=== PATIENT | female | born 1985 | race Caucasian/White ===

== ENCOUNTER 2020-08-12 06:04 | Observation (INO) | payer OTHER ==
[2020-08-12] VITALS (10 sets, daily range): BP systolic 90–129; BP diastolic 54–83
[~2020-08-12] VITALS: Ht 167.6 cm; Wt 125.0 kg
[~2020-08-12 06:04] MED LIST: CALC-58 PO; CETI10TA74 PO; CHOL5000 PO; CYAN25008 PO; HYDROmorphone 2 MG/ML VIAL IVP PRN; MORPHINE SULFATE 2 MG/ML VIAL. IVP PRN; MULT-445 PO; PROCHLORPERAZINE 10 MG/2 ML VIAL. IVP PRN; fentaNYL PF VIAL 100 MCG/2 ML VIAL IVP PRN
[2020-08-12] MEDS: IV RINGERS,LACTATED 1000ML 1,000 ML IV SCH ×2 (06:53→11:01)
[2020-08-12 07:05] LABS: BASO % 0 % (0-3); EOS # 0.1 x10^3/uL (0.0-0.7); EOS % 1 % (0-3); HEMATOCRIT 36.5 % (36.0-47.0); LYMPH % 28 % (24-48); MEAN CORPUSCULAR HEMOGLOBIN 26 pg (25-35); MEAN CORPUSCULAR HGB CONC 33 g/dL (31-37); MEAN CORPUSCULAR VOLUME 79 fL (79-100); MONO # 0.5 x10^3/uL (0.0-1.1); MONO % 7 % (0-9); NEUT # 4.4 x10^3/uL (1.8-7.7); NEUT % 63 % (31-73); PLATELET COUNT 226 x10^3/uL (140-400); RED CELL DISTRIBUTION WIDTH 15.4 % (11.5-14.5)
[2020-08-12] MEDS ORDERED: LIDOCAINE 2% PF 5 ML VIAL. ONE (07:24)
[2020-08-12] MEDS ORDERED: fentaNYL PF VIAL 250 MCG/5 ML VIAL ONE (07:24)
[2020-08-12] MEDS ORDERED: MIDAZOLAM HCL/PF 2 MG/2 ML VIAL. ONE (07:24)
[2020-08-12] MEDS ORDERED: ROCURONIUM 50 MG/5 ML VIAL. ONE ×2 (07:24→08:40)
[2020-08-12] MEDS ORDERED: PROPOFOL 10 MG/ML (20ML) VIAL. IV ONE (07:24)
[2020-08-12] MEDS ORDERED: SURGICEL HEMOSTAT 4X8 EACH. ONE (07:29)
[2020-08-12] MEDS ORDERED: BUPIVACAINE-EPI 0.25% 30 ML VIAL KIT. ONE (07:29)
[2020-08-12] MEDS ORDERED: ESTROGENS, CONJ VAGINAL CREAM 30GM TUBE. ONE (07:29)
[2020-08-12] MEDS ORDERED: INDIGOTINDISULFONATE SODIUM 40 MG/5 ML AMPUL. ONE (07:30)
[2020-08-12] MEDS ORDERED: LIDOCAINE 1%/EPI 1:100,000 20 ML VIAL. ONE (07:30)
[2020-08-12] MEDS ORDERED: DEXAMETHASONE SOD PHOS 4 MG/ML VIAL ONE (08:03)
[2020-08-12] MEDS ORDERED: ONDANSETRON PF 4 MG/2 ML VIAL. ONE (08:03)
[2020-08-12] MEDS ORDERED: ceFAZolin SODIUM IV Push 1 GM VIAL. IVP ONE (08:12)
[2020-08-12] MEDS ORDERED: ALBUTEROL SULFATE 8GM INHALER. INH ONE (08:37)
[2020-08-12] MEDS ORDERED: GLYCOPYRROLATE 1 MG/5 ML VIAL. ONE (08:45)
[2020-08-12] MEDS ORDERED: NEOSTIGMINE METHYLSULFATE 5 MG/5 ML SYRINGE. ONE (09:16)
--- NOTE | 2020-08-12 09:38 | PDOC ---
BRIEF OPERATIVE NOTE Date: Aug 12, 2020 Pre-Op Diagnosis 1. Menorrhagia 2. Dysmenorrhea 3. ROV Cyst Post-Op Diagnosis Same Procedure Performed LAVH & RSO Surgeon Dr. Scales Rehab Consultant Sequins Stringer: Armin Anesthesia Type: General Blood Loss 200 ml Specimens Obtained cervix, uterus, fred. fallopian tubes and ROV Findings Enlarged uterus, ROV cyst 5 cm size, nml fallopian tubes fred. Complications none Operative Note see dictation MARII SCALES Jr, MD Aug 12, 2020 09:38
[2020-08-12] MEDS ORDERED: KETOROLAC 30 MG/ML VIAL. ONE (09:44)
[2020-08-12] MEDS ORDERED: 0.9 % SODIUM CHLORIDE 10 ML DISP.SYRIN. IV PRN (09:45)
[2020-08-12] MEDS ORDERED: ONDANSETRON PF 4 MG/2 ML VIAL. IV PRN (09:45)
[2020-08-12] MEDS ORDERED: SIMETHICONE 80 MG TAB.CHEW PO PRN (09:45)
[2020-08-12] MEDS ORDERED: ZOLPIDEM 5 MG TABLET. PO PRN (09:45)
[2020-08-12] MEDS ORDERED: diphenhydrAMINE 50 MG/ML VIAL IV PRN (09:45)
[2020-08-12] MEDS ORDERED: diphenhydrAMINE HCL 25 MG CAPSULE PO PRN (09:45)
[2020-08-12] MEDS ORDERED: CALCIUM CARBONATE 500 MG TAB.CHEW PO PRN (09:45)
[2020-08-12] MEDS ORDERED: DEXTROSE 50% 25 GM / 50ML DISP.SYRIN. IV PRN (09:45)
[2020-08-12] MEDS ORDERED: PROCHLORPERAZINE 10 MG/2 ML VIAL. IV PRN (09:45)
[2020-08-12] MEDS: fentaNYL PF VIAL 100 MCG/2 ML VIAL IVP PRN ×2 (10:10→10:18)
--- NOTE | 2020-08-12 10:18 | OP ---
DATE OF SURGERY: 08/12/2020 PREOPERATIVE DIAGNOSES: 1. Menorrhagia. 2. Dysmenorrhea. 3. Right ovarian cyst. POSTOPERATIVE DIAGNOSES: 1. Menorrhagia. 2. Dysmenorrhea. 3. Right ovarian cyst. PROCEDURE: LAVH and RSO. SURGEON: Miguel Scales MD HAND HOSE CUTTER: Armin. ANESTHESIA: GETA. ESTIMATED BLOOD LOSS: 200 mL COMPLICATIONS: None. FINDINGS: Enlarged uterus, right ovarian cyst of 5 cm size. Normal fallopian tubes bilaterally. SUMMARY: A 34-year-old with long history of heavy painful vaginal bleeding and a right ovarian cyst that enlarged. The patient was counseled on the risks, benefits and expectations for LAVH and RSO and voiced clear understanding to proceed. DESCRIPTION OF PROCEDURE: The patient was taken to the surgery suite and placed in dorsal lithotomy position. She was prepped with Betadine solution for vaginal prep and ChloraPrep for abdominal prep. After adequate anesthesia, bivalve speculum was placed vaginally. Anterior lip of cervix grasped with single tooth tenaculum. The [employer] uterine manipulator was then placed. The bivalve speculum was removed. Attention was now placed on abdomen. The 0.25% Marcaine with epinephrine was injected at the incision sites, which were right below the umbilicus and 2 incision sites in the left lower quadrant. Scalpel was utilized to make an incision infraumbilically. A Veress needle was placed. Abdomen was insufflated up to 1-1/2 liters of CO2 gas. Veress needle was then removed. A 5-mm trocar was placed. Two additional 5-mm trocars were placed in the left lower quadrant. The scope was positioned. The uterus was enlarged. There was a right ovarian cyst of about 5 cm size. The fallopian tubes appeared normal bilaterally with the aid of graspers and EnSeal device, the right round ligament was coagulated and dissected. The right infundibulopelvic ligament was coagulated and dissected. The right broad ligament was coagulated and dissected including the right uterine artery. Bladder flap was created using EnSeal device and blunt dissection. The left round ligament was coagulated and dissected. The left fallopian tube was dissected away from the left pelvic sidewall. The left uteroovarian pedicle was coagulated and dissected. The left broad ligament was coagulated and dissected down to including the left uterine artery. Suction irrigation was utilized to verify good hemostasis. We then proceeded vaginally. Valtchev uterine manipulator and single tooth tenaculum were removed. Weighted speculum and curved [place] were placed vaginally. Carmine clamps were placed in the anterior and posterior lip of the cervix. The 1% lidocaine with epinephrine was injected in a circumferential manner. Bovie cautery was utilized to circumscribe the cervix. The vaginal mucosa was dissected away from the lower uterine segment using moist Ray-Brandon and blunt dissection. The parametrial tissues were clamped bilaterally, cut, and suture ligated with 2-0 Vicryl suture. The posterior cul-de-sac was entered with sharp dissection with curved Mcconnell scissors. Long weighted speculum was then placed. The uterosacral ligaments were clamped bilaterally, cut, and suture ligated. Two additional pedicles were clamped bilaterally, cut, and suture ligated. Anterior cul-de-sac was then entered with blunt dissection. One additional pedicle on the left side was clamped, cut and suture ligated. The cervix, uterus, bilateral fallopian tubes and the right ovary were then removed. A modified Gordillo's culdoplasty was performed incorporating the uterosacral ligaments bilaterally. The remainder of the vaginal cuff was reapproximated using 2-0 Vicryl suture in a [id number] manner. A moist vaginal packing was placed. Attention was once again placed on the abdomen. The abdomen was allowed to insufflate up to 1-1/2 liters of CO2 gas. The scope was positioned. There was some bleeding along the area of the left uterine artery, which was coagulated with the EnSeal device. Suction irrigation was utilized to verify good hemostasis. FloSeal was placed over that area in the left portion of the vaginal cuff. The remainder of the pedicles were all hemostatic. The trocars were then removed under direct visualization. Abdomen was allowed to deflate as much as possible on mechanical manipulation. Three skin incisions were reapproximated using 4-0 Vicryl suture in subcuticular manner. The patient tolerated the procedure well and was taken to recovery room in stable condition. Sponge and needle count correct x 3. MARV/CHRISTINA DR: Ifeanyi TID: [id number]
[2020-08-12] MEDS ORDERED: SEVOFLURANE 61 TO 120 MINUTES. IH ONE (10:37)
--- NOTE | 2020-08-12 11:00 | NUR ---
received from recovery at bedside. she complains being uncomfortable; feeling pressure. randall to dd; patent yellow urine vpad dry and intact. 3 telfa island dressing except for umbilicus hafs mod amount red drainage. lungs clear; she had a sinus infection prior to surgery
[2020-08-12] MEDS: GABAPENTIN 300 MG CAPSULE. PO SCH ×2 (12:16→22:22)
[2020-08-12] MEDS: KETOROLAC 30 MG/ML VIAL. IV PRN (12:16)
--- NOTE | 2020-08-12 15:40 | NUR ---
Merary is crying. remains at bedside. she feels like the catheter is stabbing her and wants it out. given Percocet and Benadryl to help with discomfort. informed will call Dr. Scales regarding catheter.
[2020-08-12] MEDS: oxyCODONE/APAP 5/325 1 TAB TABLET PO PRN ×2 (15:59→20:40)
--- NOTE | 2020-08-12 16:14 | NUR ---
Spoke with Dr. Scales regarding patient c/o pain pressure in the vaginal area, Dr. Scales ordered BNO supp, see orders, also he was okay with removing the vaginal packing and not the randall catheter. Also placed as a Free Text nursing order.
[2020-08-12] MEDS ORDERED: OPIUM/BELLADONNA 30/16.2MG SUPP.RECT. PR PRN (16:15)
--- NOTE | 2020-08-12 16:50 | NUR ---
resting with eyes closed arouses easily. she is feeling better. does not feel like the randall is stabbing her.
--- NOTE | 2020-08-12 18:00 | NUR ---
Merary is resting with eyes closed. Franco is leaving and she is ok with that. she is ok with leaving the packing in. refused b& o supp at this time.
[2020-08-13] MEDS: KETOROLAC 30 MG/ML VIAL. IV PRN (01:43)
[2020-08-13 03:00] VITALS: BP 97/65
[2020-08-13] MEDS: GABAPENTIN 300 MG CAPSULE. PO SCH (05:52)
--- NOTE | 2020-08-13 06:00 | NUR ---
Vagina packing and Gonsales Catheter discontinued. Patient tolerated procedure without c/o. Rates pain 03/21. Declined need for pain medication. SCDS off and Patient ambulating in room. Coffee provided.
[2020-08-13 06:20] VITALS: BP 98/64
[2020-08-13 06:55] LABS: BASO % 0 % (0-3); EOS % 0 % (0-3); HEMATOCRIT 33.7 % (36.0-47.0); HEMOGLOBIN 10.9 g/dL (12.0-15.5); LYMPH # 2.1 x10^3/uL (1.0-4.8); LYMPH % 18 % (24-48); MEAN CORPUSCULAR HEMOGLOBIN 26 pg (25-35); MEAN CORPUSCULAR HGB CONC 32 g/dL (31-37); MEAN CORPUSCULAR VOLUME 81 fL (79-100); MONO # 0.5 x10^3/uL (0.0-1.1); MONO % 4 % (0-9); NEUT # 9.4 x10^3/uL (1.8-7.7); NEUT % 78 % (31-73); PLATELET COUNT 210 x10^3/uL (140-400); RED BLOOD COUNT 4.14 x10^6/uL (3.50-5.40); RED CELL DISTRIBUTION WIDTH 15.4 % (11.5-14.5); WHITE BLOOD COUNT 12.1 x10^3/uL (4.0-11.0)
[2020-08-13] MEDS: oxyCODONE/APAP 5/325 1 TAB TABLET PO PRN (10:26)
[2020-08-13 11:06] VITALS: BP 129/85
--- NOTE | 2020-08-13 11:52 | PDOC ---
SURGICAL PROGRESS NOTE DATE: 08/13/20 TIME: 11:50 Subjective Pt. feeling well. Pain controlled. She is ambulating, voiding and tolerating regular PO without difficulty. Pt. is passing flatus as well. Vital Signs Vital Signs Date Time Temp Pulse Resp B/P (MAP) Pulse Ox O2 Delivery O2 Flow Rate FiO2 08/13/20 11:06 98.4 64 20 129/85 (100) 97 Room Air 98.4 08/13/20 06:20 8.0 I&O Intake and Output 08/13/20 06:59 Intake Total 3520 ml Output Total 1150 ml Balance 2370 ml Intake Oral 1470 ml IV Total 2050 ml Output Urine Total 950 ml Estimated Blood Loss 200 ml PATIENT HAS A VALERIO: No General: Alert, Oriented X3, Cooperative HEENT: Atraumatic Lungs: Clear to auscultation Heart: Regular rate Abdomen: Normal bowel sounds, Soft, No tenderness, No masses Psych/Mental Status: Mental status NL Labs Laboratory Tests Test 08/12/20 05:35 08/12/20 06:30 08/13/20 06:35 Bedside Urine HCG, Qualitative Hcg negative (Negative) White Blood Count 7.0 x10^3/uL (4.0-11.0) 12.1 x10^3/uL (4.0-11.0) Red Blood Count 4.60 x10^6/uL (3.50-5.40) 4.14 x10^6/uL (3.50-5.40) Hemoglobin 12.0 g/dL (12.0-15.5) 10.9 g/dL (12.0-15.5) Hematocrit 36.5 % (36.0-47.0) 33.7 % (36.0-47.0) Mean Corpuscular Volume 79 fL (79-100) 81 fL (79-100) Mean Corpuscular Hemoglobin 26 pg (25-35) 26 pg (25-35) Mean Corpuscular Hemoglobin Concent 33 g/dL (31-37) 32 g/dL (31-37) Red Cell Distribution Width 15.4 % (11.5-14.5) 15.4 % (11.5-14.5) Platelet Count 226 x10^3/uL (140-400) 210 x10^3/uL (140-400) Neutrophils (%) (Auto) 63 % (31-73) 78 % (31-73) Lymphocytes (%) (Auto) 28 % (24-48) 18 % (24-48) Monocytes (%) (Auto) 7 % (0-9) 4 % (0-9) Eosinophils (%) (Auto) 1 % (0-3) 0 % (0-3) Basophils (%) (Auto) 0 % (0-3) 0 % (0-3) Neutrophils # (Auto) 4.4 x10^3/uL (1.8-7.7) 9.4 x10^3/uL (1.8-7.7) Lymphocytes # (Auto) 2.0 x10^3/uL (1.0-4.8) 2.1 x10^3/uL (1.0-4.8) Monocytes # (Auto) 0.5 x10^3/uL (0.0-1.1) 0.5 x10^3/uL (0.0-1.1) Eosinophils # (Auto) 0.1 x10^3/uL (0.0-0.7) 0.0 x10^3/uL (0.0-0.7) Basophils # (Auto) 0.0 x10^3/uL (0.0-0.2) 0.0 x10^3/uL (0.0-0.2) Laboratory Tests Test 08/13/20 06:35 White Blood Count 12.1 x10^3/uL (4.0-11.0) Red Blood Count 4.14 x10^6/uL (3.50-5.40) Hemoglobin 10.9 g/dL (12.0-15.5) Hematocrit 33.7 % (36.0-47.0) Mean Corpuscular Volume 81 fL (79-100) Mean Corpuscular Hemoglobin 26 pg (25-35) Mean Corpuscular Hemoglobin Concent 32 g/dL (31-37) Red Cell Distribution Width 15.4 % (11.5-14.5) Platelet Count 210 x10^3/uL (140-400) Neutrophils (%) (Auto) 78 % (31-73) Lymphocytes (%) (Auto) 18 % (24-48) Monocytes (%) (Auto) 4 % (0-9) Eosinophils (%) (Auto) 0 % (0-3) Basophils (%) (Auto) 0 % (0-3) Neutrophils # (Auto) 9.4 x10^3/uL (1.8-7.7) Lymphocytes # (Auto) 2.1 x10^3/uL (1.0-4.8) Monocytes # (Auto) 0.5 x10^3/uL (0.0-1.1) Eosinophils # (Auto) 0.0 x10^3/uL (0.0-0.7) Basophils # (Auto) 0.0 x10^3/uL (0.0-0.2) Assessment/Plan A: POD# 1 s/p LAVH & RSO P: D/c home. Justicifation of Admission Dx: Justifications for Admission: Justification of Admission Dx: Yes MARII KOO Jr, MD Aug 13, 2020 11:52
[2020-08-13] MEDS ORDERED: DOCU-109 PO (11:55)
[2020-08-13] MEDS ORDERED: IBUP-1060 PO (11:55)
[2020-08-13] MEDS ORDERED: OXYC1TAB15 PO (11:55)
--- NOTE | 2020-08-13 11:55 | DISCH ---
DISCHARGE INSTRUCTIONS Condition on Discharge Condition on Discharge: Stable Activity After Discharge Activity Instructions for Disc: Avoid exertion, Progressive ambulation Other activity instructions: DO NOT insert anything into the vagina for six weeks Lifting Instructions after Dis: No heavy lifting, No pulling or pushing, Do not lift >10 pounds Exercise Instruction after Dis: Progress as tolerated Driving Instructions after Dis: No driving for 2 weeks Sexual Activity Restrictions: NO sex for at least six weeks Diet after Discharge Diet after Discharge: Regular Liquid Texture: Thin Liquid Wound Incision Care Wound/Incision Care: Ice to area for comfort, May get incision wet Other wound/incision instructi: You may shower. Do not rub incision. Pat area dry. Contacting the DR. after DC Call your doctor for: Concerns you may have Follow-Up Follow Up With: Dr Scales as scheduled. If you need to reschedule call [phone] Treatment/Equipment after DC Adaptive Equipment Issued: None MARII SCALES Jr, MD Aug 13, 2020 11:55
--- NOTE | 2020-08-13 12:23 | NUR ---
Patient left with her around 1218. Incisional dressing still in place per Dr Scales. Gonsales and vaginal packing was removed this morning and patient was able to void prior to discharge as well as have a BM. Scripts given for percocet, ibuprofen, and docusate. Discharge education completed by this nurse and the doctor prior to dismissal. No concerns noted at discharge.
--- NOTE | 2020-08-13 18:06 | PATHOLOGY ---
[facility] Accession Number: [id number] . 01 Material submitted: . uterus - UTERUS CERVIX BILATERAL FALLOPIAN TUBES RIGHT OVARY . 01 Clinical history: . MENORRAGHIA RT OVARIAN CYST [facility] RSO . 02 Diagnosis: Uterus, bilateral fallopian tubes, and right ovary, laparoscopic-assisted vaginal hysterectomy with right salpingo-oophorectomy and left salpingectomy: - Mild chronic cervicitis with focal squamous metaplasia. - Early secretory endometrium. - Adenomyosis, uterine corpus, sub-basal, focal. - Myometrial hypertrophy (uterine weight 206 grams). - Right paratubal serous cystadenoma. - Cystic follicles of right ovary, multiple. - Left paratubal cysts. . Fibrous tissue, site not specified: - Organizing fat necrosis with focal calcification. . (JPM:mmasuncion; 08/13/2020) [facility] 08/13/2020 1645 Local . 02 Comment: There is no evidence of malignancy. . (JPM:mml; 08/13/2020) . 02 Electronically signed: . Jef Jansen MD, Pathologist NPI- [id number] . 01 Gross description: . Labeled: Uterus cervix bilateral fallopian tubes, right ovary Specimen received: in formalin Specimen received as a 0.9 cm owens-yellow nodule (cassette A1) and uterus with cervix with attached right adnexa in which the right ovary is markedly cystic and enlarged Uterus weight: 206 gm Uterus: 10 x 6 x 4.1 cm Serosa: pink-celaya and inked as anterior blue and posterior black 13 gm fimbriated Right fallopian tube, dilated distally: 7 cm in length, ranging from 0.5-4.5 cm in diameter Right fallopian tube appearance: Remarkable for a 5.5 x 4.5 x 3 cm markedly dilated paratubal cyst 3 gm fimbriated Left fallopian tube: 3.5 cm in length, 0.9 cm in diameter Left fallopian tube appearance: Paratubal cysts measuring up to 0.8 cm 3.5 gm Right ovary: 3.7 x 2.8 x 2.1 cm Right ovary appearance: Solid to cystic with hemorrhagic cyst measuring up to 1 cm; no papillary excrescences Ectocervix: Unremarkable Cervical os: patent, measuring 0.6 cm Endocervical canal: squamo-columnar junction visualized Endometrial cavity: 4 x 2.1 cm Endometrial thickness: 0.3 cm Myometrial thickness: 3.1 cm; trabecular Lesions/abnormalities: Right adnexa previously described . [employer] sections are submitted as follows: A1-A10 right adnexa-75% submitted- (A7-A10 possible excrescences within the lining of paratubal cyst) A11 left fallopian tube A12 anterior cervix A13 posterior cervix A14 anterior endomyometrium A15 posterior endomyometrium ([facility]; 08/12/2020) . . . SIN/SIN 08/12/2020 2132 Local . 02 Pathologist provided ICD-10: N72, N80.0, D28.2, N83.8 . 02 CPT . 780352 Specimen Comment: A courtesy copy of this report has been sent to [phone], [phone] Specimen Comment: [id number] Specimen Comment: Report sent to / DR REAGAN Performed at: 01 [facility] [address], [place], [place] [id number] MD Dhiraj Allen MD Phone: [phone] Performed at: 02 [facility] [address], [place] [id number] MD Jef Jansne MD Phone: [phone]
== END 2020-08-13 12:20 | disposition home or self-care (01) ==
LOC: SURG 06:04 → 4 SOUTHEST 09:38
PROVIDERS: ADMIT Obstetrics & Gynecology; ATTEND Obstetrics & Gynecology
DX: N92.0 Excessive and frequent menstruation with regular cycle (principal); N94.6 Dysmenorrhea, unspecified; N83.201 Unspecified ovarian cyst, right side; N85.2 Hypertrophy of uterus; F17.210 Nicotine dependence, cigarettes, uncomplicated
CPT/HCPCS: 36415; 58552; 81025; 85025; 86850; 86900; 86901; 88307; 96374; 96376; 99406; A4209; A4314; A4364; A4930; A6219; A6402; G0378; G0379; J0690; J0780; J1100; J1885; J2250; J2405; J2704; J2710; J3010; J3490; J7120; Q0163; A4452; A4657